=== PATIENT | female | born 1955 | race Caucasian/White ===

== ENCOUNTER 2021-09-15 20:02 | Emergency (ER) | payer BC ==
[~2021-09-15] VITALS: Ht 167.6 cm; Wt 77.6 kg
== END 2021-09-15 23:55 | disposition home or self-care (01) ==
LOC: ER1 20:02
DX: U07.1 COVID-19 (principal); Z23 Encounter for immunization; Z85.3 Personal history of malignant neoplasm of breast; Z88.0 Allergy status to penicillin; Z91.040 Latex allergy status
CPT/HCPCS: 99283; M0245